=== PATIENT | male | born 1990 | race Caucasian/White ===

== ENCOUNTER 2020-04-20 14:16 | Emergency (ER) | payer SELFPAY ==
--- NOTE | 2020-04-20 15:00 | ER Document Report ---
ED Medical Screen (RME) - General Chief Complaint: Heat Exposure Stated Complaint: CRAMPING IN ALL EXTREMITIES Time Seen by Provider: 04/20/20 14:59 Mode of Arrival: Medic Information source: Patient Notes: 30-year-old male presented to ED for heat exhaustion. He states he was out working doing [employer] work when he became very overheated. He states it was about a half an hour before coming to the emergency room. EMS was called they gave him 2 L of normal saline and he actually states he feels much better now. We will get labs and urine completed and have him reevaluated. I have greeted and performed a rapid initial assessment of this patient. A comprehensive ED assessment and evaluation of the patient, analysis of test results and completion of medical decision making process will be conducted by an additional ED providers. - Related Data Allergies/Adverse Reactions: No Known Allergies Allergy (Unverified 04/20/20 14:57) Physical Exam - Vital signs Vitals: Temp Pulse Resp BP Pulse Ox 98.1 F 80 20 127/85 H 96 04/20/20 14:29 04/20/20 14:29 04/20/20 14:29 04/20/20 14:29 04/20/20 14:29 Course - Vital Signs Vital signs: Temp Pulse Resp BP Pulse Ox 98.1 F 80 20 127/85 H 96 04/20/20 14:29 04/20/20 14:29 04/20/20 14:29 04/20/20 14:29 04/20/20 14:29
[2020-04-20 15:34] LABS: APPEARANCE,URINE SLIGHTLY-CLOUDY; BILIRUBIN,URINE NEGATIVE (NEGATIVE); COLOR,URINE YELLOW; GLUCOSE, URINE NEGATIVE (NEGATIVE); KETONES,URINE NEGATIVE (NEGATIVE); LEUKOCYTE ESTERASE,URINE NEGATIVE (NEGATIVE); NITRITE,URINE NEGATIVE (NEGATIVE); PROTEIN,URINE 100 mg/dL (NEGATIVE); URINE SPECIFIC GRAVITY 1.019; UROBILINOGEN,URINE NEGATIVE mg/dL (<2.0)
[2020-04-20 15:38] LABS: ABSOLUTE LYMPHOCYTES (AUTO) 1.1 10^3/uL (0.5-4.7); ABSOLUTE MONOCYTES (AUTO) 1.1 10^3/uL (0.1-1.4); ABSOLUTE NEUT (AUTO) 12.5 10^3/uL (1.7-8.2); BASOPHILS % (AUTO) 0.3 % (0-2); HEMATOCRIT 42.8 % (37.9-51.0); HEMOGLOBIN 15.1 g/dL (13.5-17.0); LYMPHOCYTES % (AUTO) 7.6 % (13-45); MEAN CORPUSCULAR HEMOGLOBIN 30.6 pg (27.0-33.4); MEAN CORPUSCULAR HGB CONC 35.3 g/dL (32.0-36.0); MEAN CORPUSCULAR VOLUME 87 fl (80-97); MONOCYTES % (AUTO) 7.3 % (3-13); PLATELET COUNT 292 10^3/uL (150-450); RED BLOOD COUNT 4.94 10^6/uL (4.35-5.55); RED CELL DISTRIBUTION WIDTH 12.7 % (11.5-14.0); SEGMENTED NEUTROPHILS % (AUTO) 84.8 % (42-78); TOTAL CELLS COUNTED % (AUTO) 100 %; WHITE BLOOD COUNT 14.7 10^3/uL (4.0-10.5)
[2020-04-20 15:46] LABS: ALBUMIN 4.8 g/dL (3.5-5.0); ALKALINE PHOSPHATASE 49 U/L (38-126); ANION GAP 12 (5-19); ASPARTATE AMINO TRANSFERASE 50 U/L (17-59); BILIRUBIN,TOTAL 1.7 mg/dL (0.2-1.3); BLOOD UREA NITROGEN 19 mg/dL (7-20); CALCIUM 9.7 mg/dL (8.4-10.2); CARBON DIOXIDE 24 mmol/L (22-30); CHLORIDE 92 mmol/L (98-107); CREATINE KINASE 1024 U/L (55-170); GLUCOSE 110 mg/dL (75-110); POTASSIUM 3.9 mmol/L (3.6-5.0); TOTAL PROTEIN 7.5 g/dL (6.3-8.2)
[2020-04-20] MEDS: NORMAL SALINE 1000 ML 1,000 ML IV PRN ×2 (17:20→17:43)
--- NOTE | 2020-04-20 17:35 | ER Document Report ---
ED General - General Chief Complaint: Heat Exposure Stated Complaint: CRAMPING IN ALL EXTREMITIES Time Seen by Provider: 04/20/20 14:59 Mode of Arrival: Medic - HPI Notes: Chief complaint: Heat exhaustion HPI: 30-year-old previously healthy male taking no regular medications with no known allergies developed severe muscular cramping and generalized muscular weakness after working all day in the heat. EMS was called and he was given IV fluids in route. His symptoms are basically resolved by time of arrival here. He had mild nausea but no vomiting. He denies any chest pain or shortness of breath. Patient was on his second day of a new job doing [employer] work outdoors. Patient is a non-smoker. He consumes occasional social alcohol. No drug use. - Related Data Allergies/Adverse Reactions: No Known Allergies Allergy (Unverified 04/20/20 14:57) Past Medical History - General Information source: Patient, Friend - Social History Smoking Status: Never Smoker Frequency of alcohol use: Occasional Drug Abuse: None Lives with: Spouse/Significant other Family History: Reviewed & Not Pertinent - Medical History Medical History: Negative Surgical Hx: Negative Review of Systems - Review of Systems Notes: Constitutional: Negative for fever. HENT: Negative for sore throat. Eyes: Negative for visual changes. Cardiovascular: Negative for chest pain. Respiratory: Negative for shortness of breath. Gastrointestinal: As per HPI. Genitourinary: Negative for dysuria. Musculoskeletal: As per HPI. Skin: Negative for rash. Neurological: Negative for headaches, weakness or numbness. 10 point ROS negative except as marked above and in HPI. Physical Exam - Vital signs Vitals: Temp Pulse Resp BP Pulse Ox 98.1 F 80 20 127/85 H 96 04/20/20 14:29 04/20/20 14:29 04/20/20 14:29 04/20/20 14:29 04/20/20 14:29 - Notes Notes: GENERAL: Well-developed well-nourished male approximately stated age appearing in no acute distress. SKIN: Good turgor. Mild generalized flushing. HEAD: Normocephalic atraumatic. EYES: PERRLA. EOMI. Conjunctivae and sclerae clear. EARS: CANALS AND TMS CLEAR. NOSE: CLEAR. MOUTH: Moist mucosa. Good dentition. No stridor or edema. No drooling. NECK: Supple. No masses or thyromegaly. No adenopathy. Carotids 2+ without bruits. No JVD. BACK: Symmetrical without tenderness. CHEST: Respirations unlabored. Breath sounds clear and symmetrical. HEART: Regular rhythm. No murmur gallop or rub. ABDOMEN: Soft nontender without masses, organomegaly or rebound. Bowel sounds normally active. No bruits. GENITALIA: Deferred. EXTREMITIES: No edema. No calf tenderness. Cap refill less than 1.5 seconds. Dorsalis pedis and posterior tibial pulses 3+ and symmetrical. NEUROLOGICAL: GCS 15. Alert and oriented x3. Normal gait. Fluent speech. Cranial nerves II through XII intact. Sensorimotor and cerebellar normal. Normal tone. PSYCHIATRIC: Appropriate affect. Course - Re-evaluation Re-evalutation: 04/20/20 19:59 This man came in with findings of classic heat exhaustion. He was symptom atically improved by the time of arrival here having received IV fluids administered by EMS. His creatinine was mildly elevated and he had a initial CK of thousand. He also showed a trace of blood on the urine dipstick. I was concerned about an early rhabdomyolysis and elected to give this man additional 2 L normal saline IV. His creatinine was down to 1.2 but his CK had gone at 1500. He looks well clinically and feels well and is tolerating oral fluids without any difficulty. My plan is to discharge him tonight and have him come back tomorrow for repeat labs. Patient and his fiance are both comfortable with this. Findings, clinical impression and plan of treatment have been discussed with patient/family. Understanding of current findings and recommendations has been acknowledged by them and there is agreement regarding disposition and follow-up. - Vital Signs Vital signs: Temp Pulse Resp BP Pulse Ox 98.1 F 80 20 127/85 H 96 04/20/20 14:29 04/20/20 14:29 04/20/20 14:29 04/20/20 14:29 04/20/20 14:29 - Laboratory Result Diagrams: 04/20/20 15:10 04/20/20 18:52 Laboratory results interpreted by me: 04/20/20 04/20/20 04/20/20 15:10 15:10 15:10 WBC 14.7 H Lymph % (Auto) 7.6 L Absolute Neuts (auto) 12.5 H Seg Neutrophils % 84.8 H Sodium 127.7 L Chloride 92 L Creatinine 1.46 H Est GFR (MDRD) Non-Af 57 L Total Bilirubin 1.7 H Creatine Kinase 1024 H Urine Protein 100 H Urine Blood SMALL H Urine Ascorbic Acid 40 H 04/20/20 18:52 WBC Lymph % (Auto) Absolute Neuts (auto) Seg Neutrophils % Sodium 128.6 L Chloride 97 L Creatinine Est GFR (MDRD) Non-Af Total Bilirubin Creatine Kinase 1491 H Urine Protein Urine Blood Urine Ascorbic Acid Discharge - Discharge Clinical Impression: Heat exhaustion Qualifiers: Encounter type: initial encounter Qualified Code(s): T67.5XXA - Heat exhaustion, unspecified, initial encounter Rhabdomyolysis Qualifiers: Rhabdomyolysis type: non-traumatic Qualified Code(s): M62.82 - Rhabdomyolysis Condition: Stable Disposition: HOME, SELF-CARE Additional Instructions: Heat Exhaustion You have had an episode of heat exhaustion. The body overheats when sweating fails to keep the temperature down due to high humidity, exercise, or dehydration. Typical symptoms may include muscle cramps, dizziness, nausea, and even chilling. You should rest and drink plenty of fluids. Do not resume any activities until you feel fully back to normal. To prevent a recurrence, avoid working in the heat. Always drink plenty of fluids when the weather is hot, particularly if you will be exercising. Use extra caution when the humidity is high. If you feel symptoms of heat illness, douse yourself with cold water and rest in the shade. Call the doctor if you develop confusion, repeated vomiting, severe hea dache, severe muscle spasms, fever, chest pain or shortness of breath. Return here tomorrow for repeat laboratory testing which should include: Urinalysis, basic metabolic profile and creatinine kinase level. Referrals: [facility] [Provider Group] - Follow up as needed
[2020-04-20 19:24] LABS: ANION GAP 9 (5-19); BLOOD UREA NITROGEN 15 mg/dL (7-20); CALCIUM 8.7 mg/dL (8.4-10.2); CARBON DIOXIDE 23 mmol/L (22-30); CHLORIDE 97 mmol/L (98-107); CREATINE KINASE 1491 U/L (55-170); GLUCOSE 101 mg/dL (75-110); POTASSIUM 3.7 mmol/L (3.6-5.0)
[2020-04-20 20:42] VITALS: BP 118/65
== END 2020-04-20 20:40 | disposition home or self-care (01) ==
LOC: ER 14:16
DX: T67.5XXA Heat exhaustion, unspecified, initial encounter (principal); M62.82 Rhabdomyolysis; X30.XXXA Exposure to excessive natural heat, initial encounter; Y93.89 Activity, other specified; Y99.0 Civilian activity done for income or pay; R11.0 Nausea; R31.9 Hematuria, unspecified
CPT/HCPCS: 99284; 96360; 36415; 82550; 83690; 85025; 80053; 81001; J7030